=== PATIENT | male | born 1955 | race Caucasian/White ===

== ENCOUNTER 2017-10-18 10:44 | Observation (INO) | payer OTHER ==
[2017-10-18] MEDS ORDERED: Sodium Chloride 0.9% 1,000 ML IV ONE (10:59)
[2017-10-18] MEDS ORDERED: Diltiazem 25 MG/5 ML SDV IVPUSH ONE (11:00)
[2017-10-18] MEDS ORDERED: Diltiazem 100 MG in Sodium Chloride 0.9% 100 ML IV SCH (11:15)
[2017-10-18 11:48] LABS: CHLORIDE,CL 104 mmol/L (98-110); SODIUM,NA 136 mmol/L (136-146)
--- NOTE | 2017-10-18 12:25 | EDM.PDOC ---
ED HPI GENERAL MEDICAL PROBLEM - General Chief Complaint: Cardiovascular Problem Stated Complaint: HEART ISSUES Time Seen by Provider: 10/18/17 10:56 Headache Pain Score (Numeric/FACES): 6 - Related Data Allergies Allergy/AdvReac Type Severity Reaction Status Date / Time No Known Allergies Allergy Verified 10/18/17 10:51 Home Meds: Home Meds Lisinopril [Prinivil] 10/18/17 [History] Past Medical History Cardiovascular History: Reports: Hypertension - Infectious Disease History Infectious Disease History: Reports: Chicken Pox, Measles, Mumps Social & Family History - Family History Family Medical History: Noncontributory - Tobacco Use Smoking Status *Q: Current Every Day Smoker Years of Tobacco use: 35 Packs/Tins Daily: 0.5 - Alcohol Use Days Per Week of Alcohol Use: 7 Number of Drinks Per Day: 2 Total Drinks Per Week: 14 - Recreational Drug Use Recreational Drug Use: Yes Drug Use in Last 12 Months: Yes Recreational Drug Type: Reports: Marijuana/Hashish Recreational Drug Use Frequency: Socially Course - Vital Signs Last Recorded V/S: Last Vital Signs Temp 97.8 F 10/18/17 11:15 Pulse 97 10/18/17 11:15 Resp 20 10/18/17 11:15 BP 154/104 H 10/18/17 11:15 Pulse Ox 97 10/18/17 11:15 - Orders/Labs/Meds Orders: Active Orders 24 hr Category Date Time Status EKG Documentation Completion [RC] STAT Care 10/18/17 11:02 Active Diltiazem [Cardizem] 100 mg Med 10/18/17 11:15 Active Sodium Chloride 0.9% [Normal Saline] 100 ml IV TITRATE Sodium Chloride 0.9% [Normal Saline] 1,000 ml Med 10/18/17 10:59 Active IV STAT Medication Orders Diltiazem HCl 100 mg/ Sodium (Chloride) 100 mls @ 5 mls/hr IV TITRATE BUDDY; 5 MG /HR PRN Reason: Protocol Sodium Chloride (Normal Saline) 1,000 mls @ 75 mls/hr IV STAT ONE Stop: 10/19/17 00:18 Labs: Laboratory Tests 10/18/17 10/18/17 10/18/17 Range/Units 11:14 11:14 11:14 WBC 7.43 (4.0-11.0) K/uL RBC 4.77 (4.50-5.90) M/uL Hgb 15.1 (13.0-17.0) g/dL Hct 44.2 (38.0-50.0) % MCV 92.7 (80.0-98.0) fL MCH 31.7 (27.0-32.0) pg MCHC 34.2 (31.0-37.0) g/dL RDW Std Deviation 46.2 (28.0-62.0) fl RDW Coeff of Laura 14 (11.0-15.0) % Plt Count 251 (150-400) K/uL MPV 9.00 (7.40-12.00) fL Neut % (Auto) 65.9 (48.0-80.0) % Lymph % (Auto) 25.7 (16.0-40.0) % [place] % (Auto) 7.5 (0.0-15.0) % Eos % (Auto) 0.4 (0.0-7.0) % Baso % (Auto) 0.5 (0.0-1.5) % Neut # (Auto) 4.9 (1.4-5.7) K/uL Lymph # (Auto) 1.9 (0.6-2.4) K/uL [place] # (Auto) 0.6 (0.0-0.8) K/uL Eos # (Auto) 0.0 (0.0-0.7) K/uL Baso # (Auto) 0.0 (0.0-0.1) K/uL Nucleated RBC % 0.0 /100WBC Nucleated RBCs # 0 K/uL INR 1.04 Sodium 136 (136-146) mmol/L Potassium 4.5 (3.5-5.1) mmol/L Chloride 104 (98-110) mmol/L Carbon Dioxide 23 (21-31) mmol/L BUN 13 (6.0-23.0) mg/dL Creatinine 1.0 (0.6-1.5) mg/dL Est Cr Clr Drug Dosing TNP Estimated GFR (MDRD) > 60.0 ml/min Glucose 96 (60-110) mg/dL Calcium 9.0 (8.8-10.8) mg/dL Total Bilirubin 0.9 (0.1-1.5) mg/dL AST 26 (5-40) IU/L ALT 27 (8-54) IU/L Alkaline Phosphatase 38 L (40-150) Troponin I < 0.10 (0.0-0.29) NG/ML Total Protein 6.6 (6.0-8.0) g/dL Albumin 4.1 (3.4-4.8) g/dL Globulin 2.5 (2.0-3.5) g/dL Albumin/Globulin Ratio 1.6 (1.3-2.8) Meds: Medications Generic Name Dose Route Start Last Admin Trade Name Freq PRN Reason Stop Dose Admin Diltiazem HCl 100 mg/ Sodium 100 mls @ 5 mls/hr 10/18/17 11:15 Chloride IV TITRATE BUDDY Protocol 5 MG/HR Sodium Chloride 1,000 mls @ 75 mls/hr 10/18/17 10:59 Normal Saline IV 10/19/17 00:18 STAT ONE Discontinued Medications Generic Name Dose Route Start Last Admin Trade Name Freq PRN Reason Stop Dose Admin Diltiazem HCl 20 mg 10/18/17 11:00 10/18/17 11:37 Diltiazem IVPUSH 10/18/17 11:01 20 mg ONETIME ONE Administration Departure - Departure
--- NOTE | 2017-10-18 12:34 | EDM.PDOC ---
ED HPI GENERAL MEDICAL PROBLEM - General Chief Complaint: Cardiovascular Problem Stated Complaint: HEART ISSUES Time Seen by Provider: 10/18/17 10:56 Source of Information: Reports: Patient History Limitations: Reports: No Limitations - History of Present Illness INITIAL COMMENTS - FREE TEXT/NARRATIVE: Presents to the ER stating that he has not had any medical care in his adult life. About 2 weeks ago he checked his blood pressure in a retail outlet and it was elevated so he went over to a walk-in clinic. His blood pressure was elevated and he was started on a "low dose of lisinopril". This morning he felt very dizzy and had some palpitations. He returned to the walk-in clinic where they did an EKG. He was noted to be in atrial flutter and thus they asked him to come over and present here. Patient denies any shortness of breath chest pain or other symptoms except some occasional palpitations and off-and-on lightheadedness. He has a 51-[id number]-vrlb smoking history, occasionally smokes marijuana and drinks 2-5 beers per day. 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 He has a brother and his mom who suffer with atrial fibrillation. Headache Pain Score (Numeric/FACES): 6 - Related Data Allergies Allergy/AdvReac Type Severity Reaction Status Date / Time No Known Allergies Allergy Verified 10/18/17 10:51 Home Meds: Home Meds Lisinopril [Prinivil] 10/18/17 [History] Past Medical History Cardiovascular History: Reports: Hypertension - Infectious Disease History Infectious Disease History: Reports: Chicken Pox, Measles, Mumps Social & Family History - Family History Family Medical History: Noncontributory - Tobacco Use Smoking Status *Q: Current Every Day Smoker Years of Tobacco use: 35 Packs/Tins Daily: 0.5 - Alcohol Use Days Per Week of Alcohol Use: 7 Number of Drinks Per Day: 2 Total Drinks Per Week: 14 - Recreational Drug Use Recreational Drug Use: Yes Drug Use in Last 12 Months: Yes Recreational Drug Type: Reports: Marijuana/Hashish Recreational Drug Use Frequency: Socially ED ROS GENERAL - Review of Systems Review Of Systems: ROS reveals no pertinent complaints other than HPI. ED EXAM, GENERAL - Physical Exam Exam: See Below Exam Limited By: No Limitations General Appearance: Alert, No Apparent Distress Ears: Normal External Exam Nose: Normal Inspection Throat/Mouth: Normal Inspection Head: Atraumatic, Normocephalic Neck: Normal Inspection Respiratory/Chest: No Respiratory Distress, Lungs Clear, Normal Breath Sounds Cardiovascular: Normal Peripheral Pulses, No Edema, No Murmur GI/Abdominal: Normal Bowel Sounds, Soft, Non-Tender, No Distention Neurological: Alert, Oriented Psychiatric: Normal Affect, Normal Mood Skin Exam: Warm, Dry, Intact, Normal Color, No Rash EKG INTERPRETATION EKG Date: 10/18/17 Time: 10:48 (2:1 block) Rhythm: A-Flutter Comparison: Other: ([place] earlier this am A-flutter with variable degree of block mostly 3:1 ventricular rate around 100) Course - Vital Signs Last Recorded V/S: Last Vital Signs Temp 36.6 C 10/18/17 11:15 Pulse 97 10/18/17 11:15 Resp 20 10/18/17 11:15 BP 154/104 H 10/18/17 11:15 Pulse Ox 97 10/18/17 11:15 - Orders/Labs/Meds Orders: Active Orders 24 hr Category Date Time Status EKG Documentation Completion [RC] STAT Care 10/18/17 11:02 Ordered Diltiazem 100 MG in NS Adv@ 5 MG/HR(100ml) Med 10/18/17 11:15 Ordered Diltiazem [Cardizem] 100 mg Sodium Chloride 0.9% [Normal Saline] 100 ml IV TITRATE Sodium Chloride 0.9% [Normal Saline] 1,000 ml Med 10/18/17 10:59 Ordered IV STAT Medication Orders Diltiazem HCl 100 mg/ Sodium (Chloride) 100 mls @ 5 mls/hr IV TITRATE BUDDY; 5 MG /HR PRN Reason: Protocol Sodium Chloride (Normal Saline) 1,000 mls @ 75 mls/hr IV STAT ONE Stop: 10/19/17 00:18 Labs: Laboratory Tests 10/18/17 10/18/17 10/18/17 Range/Units 11:14 11:14 11:14 WBC 7.43 (4.0-11.0) K/uL RBC 4.77 (4.50-5.90) M/uL Hgb 15.1 (13.0-17.0) g/dL Hct 44.2 (38.0-50.0) % MCV 92.7 (80.0-98.0) fL MCH 31.7 (27.0-32.0) pg MCHC 34.2 (31.0-37.0) g/dL RDW Std Deviation 46.2 (28.0-62.0) fl RDW Coeff of Laura 14 (11.0-15.0) % Plt Count 251 (150-400) K/uL MPV 9.00 (7.40-12.00) fL Neut % (Auto) 65.9 (48.0-80.0) % Lymph % (Auto) 25.7 (16.0-40.0) % [place] % (Auto) 7.5 (0.0-15.0) % Eos % (Auto) 0.4 (0.0-7.0) % Baso % (Auto) 0.5 (0.0-1.5) % Neut # (Auto) 4.9 (1.4-5.7) K/uL Lymph # (Auto) 1.9 (0.6-2.4) K/uL [place] # (Auto) 0.6 (0.0-0.8) K/uL Eos # (Auto) 0.0 (0.0-0.7) K/uL Baso # (Auto) 0.0 (0.0-0.1) K/uL Nucleated RBC % 0.0 /100WBC Nucleated RBCs # 0 K/uL INR 1.04 Sodium 136 (136-146) mmol/L Potassium 4.5 (3.5-5.1) mmol/L Chloride 104 (98-110) mmol/L Carbon Dioxide 23 (21-31) mmol/L BUN 13 (6.0-23.0) mg/dL Creatinine 1.0 (0.6-1.5) mg/dL Est Cr Clr Drug Dosing TNP Estimated GFR (MDRD) > 60.0 ml/min Glucose 96 (60-110) mg/dL Calcium 9.0 (8.8-10.8) mg/dL Total Bilirubin 0.9 (0.1-1.5) mg/dL AST 26 (5-40) IU/L ALT 27 (8-54) IU/L Alkaline Phosphatase 38 L (40-150) Troponin I < 0.10 (0.0-0.29) NG/ML Total Protein 6.6 (6.0-8.0) g/dL Albumin 4.1 (3.4-4.8) g/dL Globulin 2.5 (2.0-3.5) g/dL Albumin/Globulin Ratio 1.6 (1.3-2.8) Meds: Medications Generic Name Dose Route Start Last Admin Trade Name Freq PRN Reason Stop Dose Admin Diltiazem HCl 100 mg/ Sodium 100 mls @ 5 mls/hr 10/18/17 11:15 Chloride IV TITRATE BUDDY Protocol 5 MG/HR Sodium Chloride 1,000 mls @ 75 mls/hr 10/18/17 10:59 Normal Saline IV 10/19/17 00:18 STAT ONE Discontinued Medications Generic Name Dose Route Start Last Admin Trade Name Freq PRN Reason Stop Dose Admin Diltiazem HCl 20 mg 10/18/17 11:00 10/18/17 11:37 Diltiazem IVPUSH 10/18/17 11:01 20 mg ONETIME ONE Administration - Re-Assessments/Exams Free Text/Narrative Re-Assessment/Exam: 10/18/17 12:33 After 20 mg of IV diltiazem he went down to a 4-1 atrial flutter with ventricular rate about 75 is asymptomatic[address] Discussion with Dr[address] Beavers regarding presentation, clinical course labs and EKG. Same will admit to observation. Departure - Departure Time of Disposition: 12:34 Disposition: Refer to Observation Condition: Good Clinical Impression: Atrial flutter by electrocardiogram Forms: ED Department Discharge - My Orders Last 24 Hours: My Active Orders 10/18/17 10:59 Sodium Chloride 0.9% [Normal Saline] 1,000 ml IV STAT 10/18/17 11:02 EKG Documentation Completion [RC] STAT 10/18/17 11:15 Diltiazem 100 MG in NS Adv@ 5 MG/HR(100ml) Diltiazem [Cardizem] 100 mg Sodium Chloride 0.9% [Normal Saline] 100 ml IV TITRATE - Assessment/Plan Last 24 Hours: My Active Orders 10/18/17 10:59 Sodium Chloride 0.9% [Normal Saline] 1,000 ml IV STAT 10/18/17 11:02 EKG Documentation Completion [RC] STAT 10/18/17 11:15 Diltiazem 100 MG in NS Adv@ 5 MG/HR(100ml) Diltiazem [Cardizem] 100 mg Sodium Chloride 0.9% [Normal Saline] 100 ml IV TITRATE
[2017-10-18] MEDS ORDERED: Ondansetron 4 MG/2 ML SDV IVPUSH PRN (13:25)
[2017-10-18] MEDS ORDERED: Sodium Chloride 0.9% 10 ML Syringe FLUSH PRN (13:25)
[2017-10-18] MEDS ORDERED: Acetaminophen 325 MG Tab PO PRN (13:25)
[2017-10-18] MEDS ORDERED: Sodium Chloride 0.9% 2.5 ML Syringe FLUSH PRN (13:25)
[2017-10-18] MEDS: Enoxaparin 40 MG/0.4 ML Syringe SUBCUT SCH (14:59)
[2017-10-18] MEDS ORDERED: Rivaroxaban 10 MG Tab PO SCH (17:30)
[2017-10-18] MEDS: Metoprolol Tartrate 50 MG Tab PO SCH (21:11)
--- NOTE | 2017-10-18 21:45 | PCM.HP ---
H&P History of Present Illness - General Date of Service: 10/18/17 Source of Information: Patient History Limitations: Reports: No Limitations - History of Present Illness Initial Comments - Free Text/Narative: This is a 62-year-old male who is presenting secondary to new-onset atrial flutter that was seen when he walked at the walk-in clinic this morning, and then present when in the ER. Patient states that last week he was having shortness of breath and heart palpitation dysfunction he went and got his blood pressure checked at [facility] where he saw that he had a very elevated blood pressure [place] and they put the patient on lisinopril. Subsequent to that the patient symptoms seem to be under control however last night he awoke with syncope and dizziness that was not going away patient became scared and went in and saw the walk-in clinic once again who did an EKG and found the patient to be in atrial flutter. Patient states that he does not see any physician, and has not seen one for an extensive period time. He denies any past medical history nor any medications. Patient states that he is a smoker half-pack a day for greater than 30 years. He drinks 2-3 beers a night. In the ER the patient had atrial flutter on evaluation and was given Cardizem 20 mg IV to help control his rate. Onset of Symptoms: Reports: Sudden Headache Pain Score (Numeric/FACES): 6 - Related Data Allergies/Adverse Reactions: Allergies Allergy/AdvReac Type Severity Reaction Status Date / Time No Known Allergies Allergy Verified 10/18/17 10:51 Home Medications: Home Meds Aspirin [Halfprin] 1 tab PO DAILY 10/18/17 [History] Lisinopril [Prinivil] 1 tab PO DAILY 10/18/17 [History] Past Medical History Cardiovascular History: Reports: Hypertension - Infectious Disease History Infectious Disease History: Reports: Chicken Pox, Measles, Mumps Social & Family History - Family History Family Medical History: Noncontributory - Tobacco Use Smoking Status *Q: Current Every Day Smoker Years of Tobacco use: 35 Packs/Tins Daily: 0.5 Used Tobacco, but Quit: No Second Hand Smoke Exposure: No - Caffeine Use Caffeine Use: Reports: Coffee, Soda, Tea - Alcohol Use Days Per Week of Alcohol Use: 7 Number of Drinks Per Day: 3 Total Drinks Per Week: 21 Date of Last Drink: 10/17/17 - Recreational Drug Use Recreational Drug Use: Yes Drug Use in Last 12 Months: Yes Recreational Drug Type: Reports: Marijuana/Hashish Recreational Drug Use Frequency: Weekly H&P Review of Systems - Review of Systems: Review Of Systems: ROS reveals no pertinent complaints other than HPI. Exam - Exam Exam: See Below - Vital Signs Vital Signs: Last Vital Signs Temp 35.6 C 10/18/17 16:00 Pulse 77 10/18/17 21:11 Resp 22 H 10/18/17 16:00 BP 116/69 10/18/17 21:11 Pulse Ox 92 L 10/18/17 16:00 Weight: 85.729 kg - Exam General: Alert, Oriented, Cooperative HEENT: Conjunctiva Clear Neck: Supple Lungs: Clear to Auscultation, Normal Respiratory Effort Cardiovascular: Irregular Rhythm, Tachycardia, Other (Atrial flutter) GI/Abdominal Exam: Normal Bowel Sounds Extremities: Normal Inspection - Patient Data Lab Results Last 24 hrs: Laboratory Results - last 24 hr 10/18/17 10/18/17 10/18/17 Range/Units 14:30 14:30 15:35 Hemoglobin A1c (4.5-6.2) % Triglycerides 55 (10-190) mg/dL Cholesterol 178 (131-240) mg/dL LDL Cholesterol, Calc 103 (60-180) mg/dL VLDL Cholesterol 11 (5-55) mg/dL HDL Cholesterol 64 (40-80) mg/dL Cholesterol/HDL Ratio 2.8 L (3.3-6.0) Urine Color YELLOW Urine Appearance CLEAR Urine pH 6.5 (5.0-8.0) Ur Specific [place] <= 1.005 (1.001-1.035) Urine Protein NEGATIVE (NEGATIVE) mg/dL Urine Glucose (UA) NEGATIVE (NEGATIVE) mg/dL Urine Ketones TRACE H (NEGATIVE) mg/dL Urine Occult Blood NEGATIVE (NEGATIVE) Urine Nitrite NEGATIVE (NEGATIVE) Urine Bilirubin NEGATIVE (NEGATIVE) Urine Urobilinogen 0.2 (<2.0) EU/dL Ur Leukocyte Esterase NEGATIVE (NEGATIVE) Urine RBC 0-1 (0-2/HPF) Urine WBC 0-1 (0-5/HPF) Ur Epithelial Cells RARE (NONE-FEW) Urine Bacteria RARE (NEGATIVE) Urine Opiates Screen NEGATIVE (NEGATIVE) Ur Oxycodone Screen NEGATIVE (NEGATIVE) Urine Methadone Screen NEGATIVE (NEGATIVE) Ur Barbiturates Screen NEGATIVE (NEGATIVE) Ur Phencyclidine Scrn NEGATIVE (NEGATIVE) Ur Amphetamine Screen NEGATIVE (NEGATIVE) U Methamphetamines Scrn NEGATIVE (NEGATIVE) U Benzodiazepines Scrn NEGATIVE (NEGATIVE) U Cocaine Metab Screen NEGATIVE (NEGATIVE) U Marijuana (THC) Screen NEGATIVE (NEGATIVE) 10/18/17 Range/Units 15:35 Hemoglobin A1c 5.3 (4.5-6.2) % Triglycerides (10-190) mg/dL Cholesterol (131-240) mg/dL LDL Cholesterol, Calc (60-180) mg/dL VLDL Cholesterol (5-55) mg/dL HDL Cholesterol (40-80) mg/dL Cholesterol/HDL Ratio (3.3-6.0) Urine Color Urine Appearance Urine pH (5.0-8.0) Ur Specific [place] (1.001-1.035) Urine Protein (NEGATIVE) mg/dL Urine Glucose (UA) (NEGATIVE) mg/dL Urine Ketones (NEGATIVE) mg/dL Urine Occult Blood (NEGATIVE) Urine Nitrite (NEGATIVE) Urine Bilirubin (NEGATIVE) Urine Urobilinogen (<2.0) EU/dL Ur Leukocyte Esterase (NEGATIVE) Urine RBC (0-2/HPF) Urine WBC (0-5/HPF) Ur Epithelial Cells (NONE-FEW) Urine Bacteria (NEGATIVE) Urine Opiates Screen (NEGATIVE) Ur Oxycodone Screen (NEGATIVE) Urine Methadone Screen (NEGATIVE) Ur Barbiturates Screen (NEGATIVE) Ur Phencyclidine Scrn (NEGATIVE) Ur Amphetamine Screen (NEGATIVE) U Methamphetamines Scrn (NEGATIVE) U Benzodiazepines Scrn (NEGATIVE) U Cocaine Metab Screen (NEGATIVE) U Marijuana (THC) Screen (NEGATIVE) Result Diagrams: 10/18/17 11:14 10/18/17 11:14 *Q Meaningful Use (ADM) - VTE *Q VTE Criteria *Q: - Stroke *Q Stroke Criteria *Q: - AMI *Q AMI Criteria *Q: Problem List Initiated/Reviewed/Updated: Yes Orders Last 24hrs: Active Orders 24 hr Category Date Time Status Cardiac Monitoring [RC] . DIRECTED Care 10/18/17 15:13 Active Notify Provider Consults [RC] ASDIRECTED Care 10/18/17 19:51 Active Notify Provider Consults [RC] ASDIRECTED Care 10/18/17 19:52 Active Telemetry Monitoring [Cardiac Monitoring] [RC] Q8H Care 10/18/17 13:01 Active Consult to Physician [CONS] Routine Cons 10/18/17 19:51 Active Heart Healthy Diet [DIET] Diet 10/18/17 Dinner Active Heart Healthy Diet [DIET] Diet 10/19/17 Dinner Active Echo Comp wo Cont [US] Routine Exams 10/19/17 15:20 Ordered Rivaroxaban [Xarelto] Med 10/18/17 17:30 Active 20 mg PO WITHDINNER Medication Orders Acetaminophen (Tylenol) 650 mg PO Q4H PRN PRN Reason: Pain (Mild 1-3)/fever Enoxaparin Sodium (Lovenox) 40 mg SUBCUT DAILY [facility] Last Admin: 10/18/17 14:59 Dose: 40 mg Metoprolol Tartrate (Lopressor) 50 mg PO Q12HR [facility] Last Admin: 10/18/17 21:11 Dose: 50 mg Ondansetron HCl (Zofran) 4 mg IVPUSH Q4H PRN PRN Reason: Nausea/Vomiting Rivaroxaban (Xarelto) 20 mg PO WITHDINNER [facility] Last Admin: 10/18/17 18:22 Dose: 20 mg Sodium Chloride (Saline Flush) 10 ml FLUSH ASDIRECTED PRN PRN Reason: Keep Vein Open Sodium Chloride (Saline Flush) 2.5 ml FLUSH ASDIRECTED PRN PRN Reason: Keep Vein Open Assessment/Plan Comment:: 62-year-old male presenting with new onset atrial flutter with no past diagnosed medical history of cardiology dysfunction, hypertension, hyperlipidemia, diabetes. Patient was seen last week with elevated blood pressures but that was the first time in a very long, the patient has seen a physician so there could've been an extensive underlying etiology of hypertension high blood pressure or diabetes that was undiagnosed. Assessment/plan: #1. Atrial flutter, controlled with Lopressor 50 mg by mouth twice a day -I have spoken with Dr. Dank cardozo who shall assess the patient he recommends an echocardiogram, and laboratory evaluation. -Shall follow Dr. Haque recommendations. #2 patient is admitted to observation anticipated length of stay is less than 2 midnights
--- NOTE | 2017-10-19 00:14 | CONS ---
DATE OF CONSULTATION: DATE OF : 1955 PRIMARY CARE PHYSICIAN: None PCP REASON FOR CONSULTATION: Atrial flutter. HISTORY OF PRESENT ILLNESS: This is a 62-year-old male, who was recently diagnosed with high blood pressure, admitted to the hospital from the clinic due to abnormal heart rhythm. On EKG 12-lead, apparently this showed typical atrial flutter with a heart rate of 138. He stated that he started feeling heart racing, lightheaded 2 weeks ago with mild short of breath over the past month and then when he checked his blood pressure by himself, his blood pressure was elevated at 180/130 with a heart rate of 155 and then he has seen a provider in the walk-in clinic [facility]. Every time that he comes into the clinic, heart rate is down to the 70s. He was prescribed lisinopril 10 mg a day for the blood pressure. He did not remember how it was for the blood pressure, but he feels that his blood pressure has slowly come down. However, his heart rate has remained the same in the 155. Then, he made an appointment to see the provider in the [facility] for followup and the blood work was also ordered, but every time when he comes into the clinic, heart rate was 70s. This morning, when he woke up, he was feeling so dizzy with heart racing and some short of breath. That is when he came to the walk-in clinic. EKG 12-lead was done, it showed atrial flutter. That is why he was recommended to come to the emergency room to get admitted to the hospital. He was receiving diltiazem IV and his initial blood pressure were 155/105, currently it is 124/87. His heart rate initially 138, currently is 70. He is still in A flutter. He denied history of heart attack, heart failure, irregular heartbeat. He does have a stress test done in and he was told everything was normal. Otherwise, he works at a [employer]. He is very active. He did not have any chest pain, heaviness, but this morning, he started feeling dizzy with heart racing and he felt like he is almost going to pass out. PAST MEDICAL HISTORY: Including a recent diagnosis of high blood pressure. Otherwise, he denied history of diabetes, thyroid problems, irregular heartbeat, heart failure, and heart attack. ALLERGIES: No known drug allergies. CURRENT MEDICATIONS: Including Lopressor 50 mg twice a day. SOCIAL HISTORY: He is a current smoker. He drank 3-4 beers a day. He uses marijuana. FAMILY HISTORY: Father had a history of CAD at the age of 60. Mother had a history of hypertension. PHYSICAL EXAMINATION: VITAL SIGNS: Initial blood pressure 160/110, currently 124/87; O2 saturation 92% on room air; respirations 20-22; temperature 35.6 to 35.9; and heart rate initially 138, currently is 71. HEENT: No pallor, no jaundice, no JVD. HEART: Normal S1, S2. No murmur. Regular rate and rhythm. LUNGS: Clear. No crackles. ABDOMEN: Soft, nontender. Bowel sounds are present. No hepatosplenomegaly. EXTREMITIES: Legs: No edema. INVESTIGATION: EK-lead, it showed typical A flutter. LABORATORY TESTS: CBC showed WBC 7, hematocrit 44, platelets 251. INR 1.04. A1c 5.3. Troponin was less than 1. Total cholesterol 178, LDL 103, HDL 64. Liver function is normal. Urine drug screening is negative. ASSESSMENT AND PLAN: This is a 62-year-old male with recent diagnosis of hypertension, came in with asymptomatic atrial flutter, rapid ventricular response, currently he is still in atrial flutter, but the rate is better controlled. We will recommend to start Lopressor 50 mg p.o. 12 hours and CHADS-VASc score is 1. However, he would need a blood thinner to prepare for ablation or the cardioversion. Recommended him to have an ablation for atrial flutter, but this is not urgent. We can discuss again when he follows up with me in the clinic. Recommended to get an echocardiogram done to assess his LV EF. He is euvolemic on my exam. I will follow him tomorrow morning and he should stop drinking as well as he should stop smoking as well. PRINCESS RAMACHANDRAN /[id number] ELENA
[2017-10-19] MEDS: Metoprolol Tartrate 50 MG Tab PO SCH (09:04)
[2017-10-19] MEDS: Enoxaparin 40 MG/0.4 ML Syringe SUBCUT SCH (09:04)
--- NOTE | 2017-10-19 14:16 | PCM.PN ---
- General Info Date of Service: 10/19/17 Admission Dx/Problem (Free Text): 62M recent diagnosis of HTN with new onset of typical atrial flutter. Subjective Update: he flet well, BP better controlled HR stable on metoprolol 50 BID, xarelto 20 was given - Review of Systems General: Reports: No Symptoms HEENT: Reports: No Symptoms Pulmonary: Reports: No Symptoms Cardiovascular: Reports: No Symptoms Gastrointestinal: Reports: No Symptoms Genitourinary: Reports: No Symptoms Musculoskeletal: Reports: No Symptoms Skin: Reports: No Symptoms Neurological: Reports: No Symptoms Psychiatric: Reports: No Symptoms - Patient Data Vitals - Most Recent: Last Vital Signs Temp 36.4 C 10/19/17 11:22 Pulse 80 10/19/17 11:22 Resp 18 10/19/17 11:22 BP 130/94 H 10/19/17 11:22 Pulse Ox 98 10/19/17 11:22 Weight - Most Recent: 85.729 kg I&O - Last 24 Hours: Intake & Output 10/18/17 10/19/17 10/19/17 22:59 06:59 14:59 Intake Total 700 500 Output Total 550 1350 Balance 150 -850 Lab Results Last 24 Hours: Laboratory Results - last 24 hr 10/18/17 10/18/17 10/18/17 Range/Units 14:30 14:30 15:35 Hemoglobin A1c (4.5-6.2) % Triglycerides 55 (10-190) mg/dL Cholesterol 178 (131-240) mg/dL LDL Cholesterol, Calc 103 (60-180) mg/dL VLDL Cholesterol 11 (5-55) mg/dL HDL Cholesterol 64 (40-80) mg/dL Cholesterol/HDL Ratio 2.8 L (3.3-6.0) Urine Color YELLOW Urine Appearance CLEAR Urine pH 6.5 (5.0-8.0) Ur Specific Qulin <= 1.005 (1.001-1.035) Urine Protein NEGATIVE (NEGATIVE) mg/dL Urine Glucose (UA) NEGATIVE (NEGATIVE) mg/dL Urine Ketones TRACE H (NEGATIVE) mg/dL Urine Occult Blood NEGATIVE (NEGATIVE) Urine Nitrite NEGATIVE (NEGATIVE) Urine Bilirubin NEGATIVE (NEGATIVE) Urine Urobilinogen 0.2 (<2.0) EU/dL Ur Leukocyte Esterase NEGATIVE (NEGATIVE) Urine RBC 0-1 (0-2/HPF) Urine WBC 0-1 (0-5/HPF) Ur Epithelial Cells RARE (NONE-FEW) Urine Bacteria RARE (NEGATIVE) Urine Opiates Screen NEGATIVE (NEGATIVE) Ur Oxycodone Screen NEGATIVE (NEGATIVE) Urine Methadone Screen NEGATIVE (NEGATIVE) Ur Barbiturates Screen NEGATIVE (NEGATIVE) Ur Phencyclidine Scrn NEGATIVE (NEGATIVE) Ur Amphetamine Screen NEGATIVE (NEGATIVE) U Methamphetamines Scrn NEGATIVE (NEGATIVE) U Benzodiazepines Scrn NEGATIVE (NEGATIVE) U Cocaine Metab Screen NEGATIVE (NEGATIVE) U Marijuana (THC) Screen NEGATIVE (NEGATIVE) 10/18/17 Range/Units 15:35 Hemoglobin A1c 5.3 (4.5-6.2) % Triglycerides (10-190) mg/dL Cholesterol (131-240) mg/dL LDL Cholesterol, Calc (60-180) mg/dL VLDL Cholesterol (5-55) mg/dL HDL Cholesterol (40-80) mg/dL Cholesterol/HDL Ratio (3.3-6.0) Urine Color Urine Appearance Urine pH (5.0-8.0) Ur Specific Qulin (1.001-1.035) Urine Protein (NEGATIVE) mg/dL Urine Glucose (UA) (NEGATIVE) mg/dL Urine Ketones (NEGATIVE) mg/dL Urine Occult Blood (NEGATIVE) Urine Nitrite (NEGATIVE) Urine Bilirubin (NEGATIVE) Urine Urobilinogen (<2.0) EU/dL Ur Leukocyte Esterase (NEGATIVE) Urine RBC (0-2/HPF) Urine WBC (0-5/HPF) Ur Epithelial Cells (NONE-FEW) Urine Bacteria (NEGATIVE) Urine Opiates Screen (NEGATIVE) Ur Oxycodone Screen (NEGATIVE) Urine Methadone Screen (NEGATIVE) Ur Barbiturates Screen (NEGATIVE) Ur Phencyclidine Scrn (NEGATIVE) Ur Amphetamine Screen (NEGATIVE) U Methamphetamines Scrn (NEGATIVE) U Benzodiazepines Scrn (NEGATIVE) U Cocaine Metab Screen (NEGATIVE) U Marijuana (THC) Screen (NEGATIVE) Med Orders - Current: Current Medications Acetaminophen (Tylenol) 650 mg PO Q4H PRN PRN Reason: Pain (Mild 1-3)/fever Enoxaparin Sodium (Lovenox) 40 mg SUBCUT DAILY [facility] Last Admin: 10/19/17 09:04 Dose: 40 mg Metoprolol Tartrate (Lopressor) 50 mg PO Q12HR [facility] Last Admin: 10/19/17 09:04 Dose: 50 mg Ondansetron HCl (Zofran) 4 mg IVPUSH Q4H PRN PRN Reason: Nausea/Vomiting Rivaroxaban (Xarelto) 20 mg PO WITHDINNER [facility] Last Admin: 10/18/17 18:22 Dose: 20 mg Sodium Chloride (Saline Flush) 10 ml FLUSH ASDIRECTED PRN PRN Reason: Keep Vein Open Sodium Chloride (Saline Flush) 2.5 ml FLUSH ASDIRECTED PRN PRN Reason: Keep Vein Open Discontinued Medications Diltiazem HCl (Diltiazem) 20 mg IVPUSH ONETIME ONE Stop: 10/18/17 11:01 Last Admin: 10/18/17 11:37 Dose: 20 mg Diltiazem HCl 100 mg/ Sodium (Chloride) 100 mls @ 5 mls/hr IV TITRATE [facility]; 5 MG /HR PRN Reason: Protocol Sodium Chloride (Normal Saline) 1,000 mls @ 75 mls/hr IV STAT ONE Stop: 10/19/17 00:18 Last Admin: 10/18/17 13:14 Dose: Not Given - Exam General: Alert, Oriented HEENT: Pupils Equal Neck: Supple Lungs: Clear to Auscultation Cardiovascular: Regular Rate, Regular Rhythm GI/Abdominal Exam: Normal Bowel Sounds (Male) Exam: No Hernia Back Exam: Normal Inspection Extremities: Normal Inspection EKG INTERPRETATION Rhythm: A-Flutter - Problem List Review Problem List Initiated/Reviewed/Updated: Yes - My Orders Last 24 Hours: My Active Orders 10/18/17 17:30 Rivaroxaban [Xarelto] 20 mg PO WITHDINNER - Plan Plan:: 62M HTN atrial flutter 1. new onset atrial flutter, prelim echo showed preserved LVEF 60% with RV/RA dilatation trace TR. He felt well, his HR well controlled on metoprolol 50 BID, xarelto was given [id number] 1. We discussed the option of ablation that can cure the aflutter. He appeared euvolemic on my exam. He can be discharged on my stand point. - continue xarelto 20 daily, metoprolol 50 BID 2. HTN better controlled.
--- NOTE | 2017-10-19 20:05 | PCM.DCSUM1 ---
Discharge Summary - Hospital Course HPI Initial Comments: Discharge Summary Date of admission: 10/18/2017 Date of discharge: Admitting diagnosis: #1. Atrial flutter #2. Past medical history of hypertension #3. #4. #5. Discharge diagnoses: #1. Atrial flutter controlled with Lopressor 50 mg twice a day as well as being placed on Coumadin for blood thinning #2. Past medical history of hypertension #3. #4. #5. Consultations: Cardiology Procedures: None Hospitalization course: Patient was admitted secondary to heart palpitations that he's been expressing for the past week, he is recent diagnosed with hypertension. Patient patient was assessed by cardiology who based upon imaging and EKG found the patient to be in atrial flutter and after giving the patient with triple 50 mg twice a day was able to control the patient's a flutter, and decided to send the patient home on Lopressor 50 mg twice a day, Coumadin 5 mg for blood today to ensure no clotting/stroke type symptoms, and better control the patient's hypertension. Patient throughout the night and into the morning did not have any further flutter-like symptoms after Lopressor had taken effect and he was cardioverted via medication. Patient was then subsequently discharged , troponins negative 3.. Disposition on discharge: Home Condition on discharge: Stable Discharge medications: Lopressor 50 mg twice a day, Coumadin 5 mg daily, atorvastatin 40 mg, aspirin 81 mg Follow-up instructions: Follow-up Dr. Zelaya and cardiology Dr. Mendoza - Discharge Data Discharge Date: 10/19/17 Discharge Disposition: Home, Self-Care 01 Condition: Fair - Patient Summary/Data Consults: Consultations 10/18/17 19:51 Consult to Physician [CONS] Routine - Patient Instructions Diet: Heart Healthy Diet Activity: As Tolerated Driving: May Drive Today Showering/Bathing: May Shower Notify Provider of: Fever, Increased Pain, Swelling and Redness - Discharge Plan Prescriptions/Med Rec: Metoprolol Tartrate [Lopressor] 50 mg PO Q12HR 30 Days #60 tablet atorvaSTATin Calcium [Atorvastatin Calcium] 40 mg PO DAILY 30 Days #30 tablet Warfarin [Coumadin] 5 mg PO DAILY 30 Days #30 tab Home Medications: Home Meds Aspirin [Halfprin] 1 tab PO DAILY 10/18/17 [History] Metoprolol Tartrate [Lopressor] 50 mg PO Q12HR 30 Days #60 tablet 10/19/17 [Rx] Warfarin [Coumadin] 5 mg PO DAILY 30 Days #30 tab 10/19/17 [Rx] atorvaSTATin Calcium [Atorvastatin Calcium] 40 mg PO DAILY 30 Days #30 tablet [Rx] Patient Handouts: Metoprolol extended-release tablets, What You Need to Know About Warfarin, Atrial Flutter, Warfarin tablets, Prothrombin Time, International Normalized Ratio Test, Atorvastatin tablets Referrals: Lester Denton MD [Physician] - 10/27/17 11:30 am Hang Jimenez [Resident] - 10/26/17 9:30 am - Discharge Summary/Plan Comment DC Time >30 min.: No - Patient Data Vitals - Most Recent: Last Vital Signs Temp 36.4 C 10/19/17 11:22 Pulse 80 10/19/17 11:22 Resp 18 10/19/17 11:22 BP 130/94 H 10/19/17 11:22 Pulse Ox 98 10/19/17 11:22 Weight - Most Recent: 85.729 kg I&O - Last 24 hours: Intake & Output 10/19/17 10/19/17 10/19/17 06:59 14:59 22:59 Intake Total 500 Output Total 1350 Balance -850 Med Orders - Current: Current Medications Discontinued Medications Acetaminophen (Tylenol) 650 mg PO Q4H PRN PRN Reason: Pain (Mild 1-3)/fever Diltiazem HCl (Diltiazem) 20 mg IVPUSH ONETIME ONE Stop: 10/18/17 11:01 Last Admin: 10/18/17 11:37 Dose: 20 mg Enoxaparin Sodium (Lovenox) 40 mg SUBCUT DAILY [facility] Last Admin: 10/19/17 09:04 Dose: 40 mg Diltiazem HCl 100 mg/ Sodium (Chloride) 100 mls @ 5 mls/hr IV TITRATE BUDDY; 5 MG /HR PRN Reason: Protocol Sodium Chloride (Normal Saline) 1,000 mls @ 75 mls/hr IV STAT ONE Stop: 10/19/17 00:18 Last Admin: 10/18/17 13:14 Dose: Not Given Metoprolol Tartrate (Lopressor) 50 mg PO Q12HR [facility] Last Admin: 10/19/17 09:04 Dose: 50 mg Ondansetron HCl (Zofran) 4 mg IVPUSH Q4H PRN PRN Reason: Nausea/Vomiting Rivaroxaban (Xarelto) 20 mg PO WITHALEX [facility] Last Admin: 10/18/17 18:22 Dose: 20 mg Sodium Chloride (Saline Flush) 10 ml FLUSH ASDIRECTED PRN PRN Reason: Keep Vein Open Sodium Chloride (Saline Flush) 2.5 ml FLUSH ASDIRECTED PRN PRN Reason: Keep Vein Open *Q Meaningful Use (DIS) - VTE *Q VTE Criteria *Q: - Stroke *Q Stroke Criteria *Q: - AMI *Q AMI Criteria *Q:
--- NOTE | 2017-10-20 16:01 | ECHO ---
EXAM DATE: 10/18/17 PATIENT'S AGE: 62 The echocardiogram report can be seen in this patient's EMR (Electronic Medical Record) in the Reports section. The report has also been scanned into PACs. [employer]
== END 2017-10-19 13:30 | disposition home or self-care (01) ==
LOC: MW.ED 10:44 → MW.MS 14:15
PROVIDERS: ADMIT Family Medicine; ATTEND Family Medicine
DX: I48.92 Unspecified atrial flutter (principal); I10 Essential (primary) hypertension; F17.210 Nicotine dependence, cigarettes, uncomplicated; Z79.82 Long term (current) use of aspirin; Z79.01 Long term (current) use of anticoagulants; Z79.899 Other long term (current) drug therapy
CPT/HCPCS: 36415; 80053; 80061; 80305; 81001; 83036; 83735; 84484; 85025; 85610; 93306; 96372; 96374; 99285; A9270; G0378; J1650; J3490; 99283